=== PATIENT | male | born 1985 | race Caucasian/White ===

== ENCOUNTER 2018-01-25 09:30 | Emergency (ER) | payer BC, OTHER, SELFPAY ==
[2018-01-25 09:36] VITALS: BP 128/82; PULSE 97; RESP 16; TEMP 36.7; O2SAT 98
--- NOTE | 2018-01-25 10:28 | ED.GENADUL ---
Disposition Clinical Impression: Finger laceration Disposition: HOME Condition: Fair Instructions: Finger Laceration (ED) Additional Instructions: Keep current dressing on for the next 48 hours. After that time please keep the wound clean, dry, covered. You may wash with running water but do not soak or submerge this will increase her risk of infection. Monitor for signs of infection including redness, warmth, drainage, increased pain, fever/chills. If these arise please seek care urgently once again. Wear splint for the next week. Please return in 7-9 days for suture removal. Referrals: [facility] Emergency Dept. [Outside] Medical Decision Making - Medical Decision Making Patient presents today with chief complaint of laceration to the right index finger. Patient is left-hand dominant. Patient has an irregularly shaped 5 cm flap laceration over the radial side of the PIP joint. Wound is actively bleeding. Tetanus is up-to-date. No other injury noted. Sensation is intact. He has good range of motion. Ligamentous exam is intact. Patient has discussed closure techniques. Advised him suture closure for flap alignment. We discussed the risk/benefits as well as procedural steps. Patient voiced understanding and wished to proceed. Procedure note: Using standard sterile technique, the patient was anesthetized with 2% lidocaine plain. 8 cc was infiltrated. The sufficiently anesthetized the digit. Attention was then turned to washing the wound. The wound was copiously irrigated forcefully with sterile saline and cleansed with chlorhexidine. Wounds explored to base in a bloodless field, no foreign body or debris was noted. I was able to use a tourniquet to do this with tourniquet needed to be removed prior to suturing the wound as it did cause distortion to the affected tissues. #11 simple interrupted sutures were then placed using 5-0 nylon. Patient tolerated procedure well and a dry, sterile bulky dressing was placed over the wound. Patient I discussed wound care in depth. He will keep current dressing on for the next 48 hours. After that time he will keep wound clean, dry, covered. Advised he may wash with running but should not soak or submerge. Patient I discussed that there is concern for viability of the tissues at the distal aspect of the flap. And concern regarding this area as the tissue so thin. Patient is aware of the possibility that this fall off. Patient will be fitted with a foam metal splint which she will wear after removal of the bulky dressing. He will keep the splint in place for the next week. I advised that he return to the ER in 7-9 days for suture removal. We discussed signs symptoms of infection when to seek care urgently once again. I discussed activities that he should avoid it will place undue pressure on the wound. All his questions and concerns were addressed and he is in agreement with this plan. History of Present Illness - General Chief complaint: Laceration Stated complaint: RT FINGER LACERATION Time Seen by Provider: 01/25/18 10:28 Source: patient, RN notes reviewed Mode of arrival: ambulatory Limitations: no limitations - History of Present Illness Initial comments: Patient is a 32-year-old [id number] male presenting today with chief complaint of laceration to the radial side of the right index finger. 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 Denies other injuries from the incident. Denies any numbness or tingling. Feels that he is good range of motion but when he tries to flex, particularly at the PIP joint, this does increase bleeding. Patient reports that he did wash his hands and immediately applied compressive dressing to the wound to help slow down the bleeding. Last tetanus was 2012. - Related Data Ibuprofen [Advil] 600 mg PO Q6H PRN tab-cap 02/01/15 Aspirin/Caffeine [Toro Back-Body Caplet] 1 each PO PRN 01/10/17 Multivitamin [Daily Multiple Vitamin] 1 each PO DAILY 08/02/17 Allergies Allergy/AdvReac Type Severity Reaction Status Date / Time No Known Allergies Allergy Unverified 01/25/18 09:38 Review of Systems Constitutional: no symptoms reported Respiratory: no symptoms reported Musculoskeletal: as per HPI Skin: as per HPI Neurological: as per HPI Past Medical History - Past Medical History Medical history: no medical history Surgical history: non-contributory General Exam - General Limitations: no limitations General appearance: alert, in no apparent distress - Eye Eye exam: Present: normal apperance - Respiratory Respiratory exam: Absent: respiratory distress - Extremities Exam Extremities exam: Present: full ROM, tenderness, normal capillary refill. Absent: normal inspection (Exam the patient's right upper extremity is significant for a 5 cm irregularly shaped flap laceration over the radial side of the index finger. This does extend onto the PIP joint. Patient is actively bleeding. Flap does appear quite thin particularly at the distal aspect raising the concern for viability. No tendon or muscle involvement is noted. Subcutaneous tissue is visualized. Sensation is intact distal to the wound. Patient does have good range of motion.), joint swelling - Neurological Exam Neurological exam: Present: alert, normal gait. Absent: motor sensory deficit - Psychiatric Psychiatric exam: Present: normal affect, normal mood - Skin Skin exam: Absent: intact (As above) Course Vital Signs - 24 hr 01/25/18 09:36 Temperature 36.7 C Pulse 97 H Respiratory 16 Rate Blood Pressure 128/82 Pulse Oximetry 98
== END 2018-01-25 10:44 | disposition home or self-care (01) ==
PROVIDERS: Emergency Provider Emergency Medicine; PCP Nurse Practitioner Family
DX: S61.210A Laceration without foreign body of right index finger without damage to nail, initial encounter (principal); W26.0XXA Contact with knife, initial encounter
CPT/HCPCS: 12002

== ENCOUNTER 2018-02-04 17:54 | Emergency (ER) | payer BC, OTHER, SELFPAY ==
[2018-02-04 18:07] VITALS: BP 103/65; PULSE 90; RESP 18; TEMP 37.2; O2SAT 98
--- NOTE | 2018-02-04 18:13 | ED.GENADUL ---
Disposition Clinical Impression: Visit for suture removal Disposition: HOME Condition: Good Instructions: Care For Your Stitches (ED) Additional Instructions: Please return in 4 days for reevaluation of your remaining sutures. Please continue to use triple antibiotic, or bacitracin ointment. Please continue to keep the area covered and wash gently daily. If you notice any redness, or signs of infection like warmth, fever, or drainage please return immediately. If you notice any worsening of your symptoms, or any new symptoms such as vomiting, diarrhea, fever, chills, shortness of breath, chest pain, numbness, weakness, or fainting , please return immediately to the emergency department for reevaluation. Please follow up with your primary care provider as soon as possible for reassessment and reevaluation. As always, it was a pleasure participating in your medical care today. Referrals: Coreen Garrett NP [Primary Care Provider] - Medical Decision Making - Medical Decision Making This is a pleasant 32-year-old male who presents for suture removal. Sutures were placed over 10 days ago. Patient demonstrates notable wound healing throughout, however there is a small amount of the laceration that does not appear completely healed to resolve. He has no risk factors of diabetes or steroid use. I feel that the main component of this delay is secondary to the nature of his laceration and the skin flap, however out of precaution we will leave for remaining sutures and make sure good wound healing is noted. We have instructed him to return in the next 3-4 days. There is no evidence of infection on exam, no other significant abnormalities. Patient will return for removal of the 4 remaining sutures in 4 days. History of Present Illness - General Chief complaint: SutureRem Stated complaint: SUTURE REMOVAL Time Seen by Provider: 02/04/18 18:13 - History of Present Illness Initial comments: This is a pleasant 32-year-old male with no significant medical problems who presents today for suture removal. Patient had 11 sutures on his left index finger placed 9-10 days ago secondary to lacerating it while beheading chickens. He has been doing well, with no complications. He presents today for removal of the sutures. He denies any other complaints at this time. He denies any IV or illicit drug use. He denies any pertinent family or surgical history. - Related Data Ibuprofen [Advil] 600 mg PO Q6H PRN tab-cap 02/01/15 Aspirin/Caffeine [Toro Back-Body Caplet] 1 each PO PRN 01/10/17 Multivitamin [Daily Multiple Vitamin] 1 each PO DAILY 08/02/17 Allergies Allergy/AdvReac Type Severity Reaction Status Date / Time No Known Allergies Allergy Unverified 01/25/18 09:38 Review of Systems Other: 10 point review of systems was performed, pertinent positives and negatives are noted in the history of present illness. Past Medical History - Past Medical History Medical history: no medical history Surgical history: non-contributory General Exam - Other Other exam information: 1.Const: Well-nourished, Well-developed, appearing stated age 2.Eyes: PERRL, no conjunctival injection, and symmetrical lids. 3.ENT: Atraumatic external nose and ears. Moist MM. Neck: Symmetric, trachea midline, No thyromegaly. 4.CVS: +S1/S2, No murmurs or gallops. Peripheral pulses 2+ and equal in all extremities. Brisk capillary refill in all extremities. 5.RESP: Unlabored respiratory effort. Clear to auscultation bilaterally. No wheezes rales or rhonchi 6.GI: Soft, Nontender/Nondistended, No hepatosplenomegaly. No guarding or rebound. 7.MSK: Normocephalic/Atraumatic, Extremities w/o deformity or ttp No cyanosis or clubbing, Normal movement of all extremities 8.Skin: Patient demonstrates a well-healing laceration of his left index finger. The shape is U-shaped and nature over the dorsal aspect of the finger. Good wound edge reapproximation is noted. 11 sutures were initially present. 7 were removed. There appears to be some continued need for delayed healing at the crux of the initial laceration. We will leave these remaining sutures in. A small amount of serosanguineous discharge is noted from this area. No severe fluctuance or evidence of abscess. No significant erythema, or signs of infection. 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 Sensation grossly intact, no focal neurologic deficits. 10.Psych: (AAO) x3. Appropriate mood and affect Course Vital Signs - 24 hr 02/04/18 18:07 Temperature 37.2 C Pulse 90 Respiratory 18 Rate Blood Pressure 103/65 Pulse Oximetry 98
[2018-02-04 18:25] VITALS: BP 103/65; PULSE 90; RESP 18; TEMP 37.2; O2SAT 98
== END 2018-02-04 18:35 | disposition home or self-care (01) ==
PROVIDERS: Emergency Provider Student in an Organized Health Care Education/Training Program; PCP Nurse Practitioner Family
DX: S61.210D Laceration without foreign body of right index finger without damage to nail, subsequent encounter (principal); W26.0XXD Contact with knife, subsequent encounter; Z48.02 Encounter for removal of sutures
CPT/HCPCS: 99282; 99281

== ENCOUNTER 2018-11-24 11:56 | Outpatient (REF) | payer BC, SELFPAY | END 2018-11-24 12:16 | LOC: LBN 11:56 | PROVIDERS: PCP Nurse Practitioner Family; Visit Provider Family Medicine | DX: J18.9 Pneumonia, unspecified organism (principal) | CPT/HCPCS: 87449 ==

== ENCOUNTER 2019-12-22 07:56 | Outpatient (CLI) | payer BC, SELFPAY ==
[2019-12-26 01:59] LABS: SARS-CoV-2 RNA Undetected (Undetected); SARS-CoV-2 Specimen Source Nasopharynx
== END 2019-12-22 08:16 ==
PROVIDERS: PCP Nurse Practitioner Family; Visit Provider Nurse Practitioner Family
DX: Z11.59 Encounter for screening for other viral diseases (principal)
CPT/HCPCS: U0003

== ENCOUNTER 2020-05-26 01:23 | Emergency (ER) | payer OTHER, SELFPAY ==
[2020-05-26 01:26] VITALS: BP 142/92; PULSE 73; RESP 14; TEMP 36.5; O2SAT 99
--- NOTE | 2020-05-26 01:29 | ED.GENADUL_ITS ---
Discharge Plan Disposition Patient Disposition: HOME Condition: Stable Discharge Details Clinical Impression: Blunt trauma of face Primary Care Provider: Coreen Garrett ED Provider: Logan Pope Home Meds and New Rx's Prescriptions: New amoxicillin-pot clavulanate [Augmentin] 875-125 mg tablet 1 tab PO BID Qty: 14 RF: 0 Continued multivitamin [Daily Multiple] 1 EACH tablet 1 ea PO DAILY RF: 0 Discharge Instructions Additional Instructions: your cat scan did not show any concerning findings if you have severe pain or decreased vision return to the emergency department use the erythromycin 3 times a day for 3 days Medical Decision Making 34 yo male was putting landing gear in the back of a trailer about 45 minutes prior to arrival when it came back and hit him in the left orbital region. Denies loc or vomit. Has left conjunctival mild erythema, eomi without pain, mild swelling and bruising with 0.5cm abrasion inferior to the left orbit. No neck pain chest pain or abdominal pain. Suspect abrasion and contusion but will obtain ct to evaluate for underlying orbital fracture. No evidence of globe rupture on flourescein staining pt remains stable with no evidence of entrapmenton exam and on ct. CT does show fracture of left orbital floor and medial left orbital wall extending to floor of anterior cranial fossa and recommend head ct. ct head shows no other findings, will have him follow up with ENT within 1-2 weeks and return precautions given. Differential Diagnosis Differential Diagnosis: orbital fracture, corneal abrasion, laceration Imaging Data Radiologic Study: Attestation: I personally reviewed and interpreted this imaging study as follows: Imaging: CT Scan Radiologist's impression: FINDINGS: Left periorbital swelling/laceration noted. No radiopaque foreign body There is a fracture of the left orbital floor. A fracture of the medial left orbital wall extending to the junction of the floor of the anterior cranial fossa coronal image 25 with minimal adjacent air. There are small subperiosteal hematomas. No retrobulbar hematoma, proptosis or CT evidence for muscular entrapment. The right orbit is intact. Fluid level/blood in the left maxillary sinus. Minimal fluid/blood in the left ethmoid air cells Radiologic Study #2: Attestation: I personally reviewed and interpreted this imaging study as follows: Imaging: CT Scan Radiologist's impression: head ct IMPRESSION: No acute intracranial hemorrhage Left orbital fractures as described Mildly low-lying cerebellar tonsils which may be positional. Correlate for occipital headaches HPI General Mode of arrival: ambulatory . Date/Time Provider Initiated Documentation: 05/26/20 01:29 . Limitations to Documentation: no limitations . Information obtained by: patient . History of Present Illness 34 year old M presents to the emergency department with the chief complaint of left eye trauma, described as moderate, and it has been constant. No relieving factors improve symptom(s), No exacerbating factors reported . Patient did receive the following treatments prior to arrival, none Related Data Home Medications Medication Instructions Recorded Confirmed multivitamin [Daily Multiple] 1 ea PO DAILY 08/02/17 05/26/20 amoxicillin-pot clavulanate 1 tab PO BID #14 tab 05/26/20 [Augmentin] Previous Rx's Medication Instructions Recorded amoxicillin-pot clavulanate 1 tab PO BID #14 tab 05/26/20 [Augmentin] Allergies Allergy/AdvReac Type Severity Reaction Status Date / Time No Known Allergies Allergy Verified 05/26/20 01:34 General Stated Complaint: EyeProblem JACINTO: 3 Review of Systems All systems reviewed & are unremarkable except as noted in HPI and below Constitutional Constitutional: Denies chills, Denies fever(s) and Denies weakness Cardiovascular Cardiovascular: Denies chest pain and Denies dyspnea Respiratory Respiratory: Denies cough and Denies dyspnea Gastrointestinal Gastrointestinal: Denies abdominal pain, Denies nausea and Denies vomiting Musculoskeletal Musculoskeletal: Denies joint swelling Integumentary/Breasts Skin/Breast: Denies rash Neurologic Neurologic: Denies weakness [facility] Medical History (Updated 05/26/20 @ 02:01 by Logan Pope MD) Back pain of lumbar region with sciatica (02/01/15) Headache due to low cerebrospinal fluid pressure Headache due to low cerebrospinal fluid pressure S/p 2 blood patches, [place] [facility] [place] History of appendectomy ~1995 Vertigo Surgical History Appendectomy Family History Father Alcohol abuse age 70's Sister Personal history of malignant neoplasm Cervical Cancer Social History Smoking/Tobacco Use Status: Never Smoking risk assessment performed?: Yes Alcohol Intake: former Drug use: Never Substance use type: does not use current occupation: Casino Floor Supervisor, [employer] Pets and animals: Yes Pets and animals: dog(s) Sexually active: Yes Current gender identity: female What is your relationship status?: Panel score (0-1 are the most socially isolated patients): 1 What type of physical activity do you participate in: none Seatbelt use: always Drive intox or ride w/intox line haul driver: No Working smoke detector in home: Yes Carbon monox detector in home: Yes Do you feel safe at home: Yes Do you feel safe in your relationship?: Yes Exam Const General: no acute distress Orientation: alert HENMT Head: normal to inspection Ears: external ears normal General nose exam: external nose normal Mouth: moist mucous membranes Eyes Alignment and Position: alignment normal Neck Neck: normal visual inspection Resp Effort & Inspection: normal respiratory effort and able to speak in complete sentences Cardio Rate: regular rate Skin General skin exam: no rashes or lesions noted Neuro General: patient alert and patient oriented x3 Extrem General: normal to inspection Psych Mental Status: mental status grossly normal Course Vital Signs Vital signs: Vital Signs Temperature 36.5 C 05/26/20 01:26 Pulse 73 05/26/20 01:26 Respiratory Rate 14 05/26/20 01:26 Blood Pressure 142/92 H 05/26/20 01:26 Pulse Oximetry 99 05/26/20 01:26 Temperature 36.5 C 05/26/20 01:26 Temperature Source Skin 05/26/20 01:26 Pulse 73 05/26/20 01:26 Respiratory Rate 14 05/26/20 01:26 Blood Pressure 142/92 H 05/26/20 01:26 Blood Pressure Position Sitting 05/26/20 01:26 Pulse Oximetry 99 05/26/20 01:26 Oxygen Delivery Method Room Air 05/26/20 01:26 Oxygen Flow Rate 0 05/26/20 01:26 Pain Level 4 05/26/20 01:26
[2020-05-26] MEDS: Balanced Salt Solution 15 ML BTL OP (01:38)
[2020-05-26] MEDS: Fluorescein STRIPS 100/BOX 1 MG OP (01:38)
[2020-05-26] MEDS: Tetracaine 0.5% 4 ML BTL OP (01:38)
--- NOTE | 2020-05-26 01:48 | DI.CT_ITS ---
EXAM: CT ORBITS WO CLINICAL HISTORY: trauma left eye. TECHNIQUE: Imaging Protocol: Axial computed tomography images with coronal and sagittal reformatted images were created and reviewed CONTRAST MATERIAL: Intravenous: Omnipaque 350 Contrast volume:structured data in ml Contrast route:I V - Oral: yes / no COMPARISON: No exams were available for comparison FINDINGS: There is periorbital swelling over the left orbit. There is fracture of the floor of the left orbit . There is some fluid in the left maxillary sinus. Inferior herniation of intraorbital fat but no o bvious muscular entrapment. Also fracture of the medial left orbital wall which extends to the junct ion of the floor and anterior cranial fossa with mild adjacent air. No true pneumocephalus. Fractur e extends into outer aspect of the trache that ipsilateral ethmoidal air cells and left frontal sinus . No abnormality seen in the optic nerve and retro conal fat. No dysconjugate gaze. No prominent p roptosis. IMPRESSION: Left orbital fractures as described above. No evidence of pneumocephalus nor intracranial hemorrhage . RADIATION DOSE DELIVERED: 233.29mGy.cm Total DLP DATA REPOSITORY: All CT scans at this facility are submitted to the National Radiology Data Registry (NRDR) Dose Index Registry (DIR) with the [employer] (A[employer]). RADIATION OPTIMIZATION: All CT scans at this facility use at least one of these dose optimization te chniques: automated exposure control; mA and/or kV adjustment per patient size (includes targeted exa ms where dose is matched to clinical indication); or iterative reconstruction.
--- NOTE | 2020-05-26 02:03 | DI.VRAD_ITS ---
PROCEDURE INFORMATION: Exam: CT Orbits Without Contrast Exam date and time: 05/26/2020 1:40 AM Age: 34 years old Clinical indication: Injury or trauma; Other: Blunt trauma; Laceration and swelling; Orbit/periorbital; Not specified; Injury date: 05/26/20; Injury details: Steel handle from tractor trailor crank under too much tension, let loose and struck PT in left eye TECHNIQUE: Imaging protocol: Computed tomography images of the orbits without contrast. Radiation optimization: All CT scans at this facility use at least one of these dose optimization techniques: automated exposure control; mA and/or kV adjustment per patient size (includes targeted exams where dose is matched to clinical indication); or iterative reconstruction. COMPARISON: MRI - BRAIN W/WO CONTRAST 11/25/2014 2:57 PM FINDINGS: Left periorbital swelling/laceration noted. No radiopaque foreign body There is a fracture of the left orbital floor. A fracture of the medial left orbital wall extending to the junction of the floor of the anterior cranial fossa coronal image 25 with minimal adjacent air. There are small subperiosteal hematomas. No retrobulbar hematoma, proptosis or CT evidence for muscular entrapment. The right orbit is intact. Fluid level/blood in the left maxillary sinus. Minimal fluid/blood in the left ethmoid air cells IMPRESSION: Left orbital fractures as described. Fracture line extends to the junction of the floor of the left anterior cranial fossa. No definite pneumocephalus or acute intracranial hemorrhage on the given images. Further evaluation with dedicated head CT may be helpful as clinically indicated Dictated and Authenticated by: Joe Oglesby MD. Ordering:ARTURO Ford MD
--- NOTE | 2020-05-26 02:16 | DI.CT_ITS ---
EXAM: CT HEAD WO CLINICAL HISTORY: trauma, fracture seen on orbital ct. TECHNIQUE: Imaging Protocol: Axial computed tomography images with coronal and sagittal reformatted images were created and reviewed COMPARISON: CT CT ORBITS WO from 05/26/2020 FINDINGS: Left orbital fracture. No other skull fractures identified. There is no evidence of intracranial hemorrhage, mass effect, or shift of midline structures. There are no extra-axial fluid collections. The ventricles are not enlarged or shifted and there is no blo od within the ventricular system nor within the basal cisterns. Mild cerebellar tonsillar ectopia noted. IMPRESSION: No acute intracranial findings. Left orbital fractures. See separate orbital report. RADIATION DOSE DELIVERED: 798.63mGy.cm Total DLP DATA REPOSITORY: All CT scans at this facility are submitted to the National Radiology Data Registry (NRDR) Dose Index Registry (DIR) with the [employer] (ACR). RADIATION OPTIMIZATION: All CT scans at this facility use at least one of these dose optimization te chniques: automated exposure control; mA and/or kV adjustment per patient size (includes targeted exa ms where dose is matched to clinical indication); or iterative reconstruction.
[2020-05-26] MEDS: Amoxicillin 875/Clav. 125 TAB PO (02:23)
[2020-05-26] MEDS: Erythromycin Ophth Oint 3.5 GM TUBE OP (02:24)
--- NOTE | 2020-05-26 02:26 | DI.VRAD_ITS ---
PROCEDURE INFORMATION: Exam: CT Head Without Contrast Exam date and time: 05/26/2020 2:14 AM Age: 34 years old Clinical indication: Injury or trauma; Other: Blunt trauma/fracture; Work related; Blunt trauma (contusions or hematomas) and laceration and swelling (edema); Consciousness not specified; Without residual foreign body; Face; Injury date: 05/26/20; Injury details: Steel handle from tractor trailor crank under too much tension, let loose and struck PT in left eye TECHNIQUE: Imaging protocol: Computed tomography of the head without contrast. Radiation optimization: All CT scans at this facility use at least one of these dose optimization techniques: automated exposure control; mA and/or kV adjustment per patient size (includes targeted exams where dose is matched to clinical indication); or iterative reconstruction. COMPARISON: MRI - BRAIN W/WO CONTRAST 11/25/2014 2:57 PM FINDINGS: Brain: No hemorrhage. Unremarkable white matter. No mass effect. Mildly low-lying cerebellar tonsils Cerebral ventricles: No ventriculomegaly. Bones/joints: Left orbital floor and medial wall fractures. Paranasal sinuses: Blood/fluid level in the left maxillary sinus and minimal fluid/blood in the left ethmoid air cells Mastoid air cells: Visualized mastoid air cells are well aerated. Soft tissues: Unremarkable. IMPRESSION: No acute intracranial hemorrhage Left orbital fractures as described Mildly low-lying cerebellar tonsils which may be positional. Correlate for occipital headaches Dictated and Authenticated by: Joe Oglesby MD. Ordering:ARTURO Ford MD
== END 2020-05-26 02:31 | disposition home or self-care (01) ==
LOC: ER 02:34
PROVIDERS: Emergency Provider Emergency Medicine; PCP Nurse Practitioner Family
DX: S02.32XA Fracture of orbital floor, left side, initial encounter for closed fracture (principal); S02.832A Fracture of medial orbital wall, left side, initial encounter for closed fracture; W20.8XXA Other cause of strike by thrown, projected or falling object, initial encounter
CPT/HCPCS: 99284; 70450; 70480; 99285

== ENCOUNTER → 2023-06-13 00:25 | Outpatient (CLI) | payer BC, SELFPAY ==
--- NOTE | 2023-06-13 08:30 | DI.RAD_ITS ---
Exam(s) XR FOOT LT COMPLETE EXAM: XR FOOT LT COMPLETE CLINICAL HISTORY: Left heel pain,LT FOOT PAIN,M79.672. TECHNIQUE: 2D digital imaging was performed. Three views. COMPARISON: No exams were available for comparison FINDINGS: BONES: No acute fracture is present. No bony destructive lesion is seen. Tiny enthesophyte at Salazar s insertion. JOINTS: No dislocation present. Steep plantar arch. SOFT TISSUE: Normal. IMPRESSION: Steep plantar arch. Tiny calcaneal enthesophyte. DATA REPOSITORY: RADIATION DOSE DELIVERED:
== END ==
PROVIDERS: PCP Nurse Practitioner Family; Visit Provider Podiatrist
DX: M79.672 Pain in left foot (principal)
CPT/HCPCS: 73630

== ENCOUNTER 2023-11-19 15:11 | Outpatient (CLI) | payer BC, SELFPAY ==
--- NOTE | 2023-11-19 15:00 | RT.EKG_ITS ---
APPROVED REPORT Exam: Resting ECG Reason for Exam: chest pain Patient Location: O HR:78 bpm ECG Measurements Heart Rate 78 AXIS MA 203 P 61 QRSd 96 QRS -24 QT 376 T 20 QTc 429 Conclusion Sinus rhythm...normal P axis, V-rate 50- 99 Borderline prolonged MA interval...MA >202, V-rate 50- 90
== END 2023-11-19 15:12 | disposition home or self-care (01) ==
LOC: DI.KIM 15:12
PROVIDERS: PCP Nurse Practitioner Family; Visit Provider Nurse Practitioner
DX: R07.9 Chest pain, unspecified (principal)
CPT/HCPCS: 93010

== ENCOUNTER 2023-11-20 05:35 | Outpatient (CLI) | payer BC, SELFPAY ==
[2023-11-20 14:10] LABS: HCT 41.8 % (40.0-50.0); MCH 31.1 pg (27.0-33.0); MCHC 35.9 % (32.0-36.0); MCV 87 fL (80-95); MPV 8.7 fL (8.0-11.0); Platelet Count 210 10^3/uL (130-400); RBC 4.83 10^6/uL (4.36-5.78); RDW 12.5 % (11.8-14.1); RDW-SD 39.3 fL; WBC 5.51 10^3/uL (4.4-10.8)
[2023-11-20 15:23] LABS: ALT 65 U/L (16-63); AST 57 U/L (15-37); Albumin 4.2 g/dL (3.4-5.0); Alkaline Phosphatase 69 U/L (46-116); Anion Gap 8.9 mmol/L (3-11); BUN 15 mg/dL (7-18); Bilirubin, Total 1.1 mg/dL (0.2-1.0); CO2 28.1 mmol/L (21.0-32.0); CREATININE 0.9 mg/dL (0.70-1.30); Calcium 9.1 mg/dL (8.5-10.1); Calculated LDL 114 mg/dL (<100); Chloride 105 mmol/L (98-107); Cholesterol 166 mg/dL (<200); Estimated GFR 110.73 (mL/min/1.73m2); Glucose 83 mg/dL (74-106); HDL Cholesterol 42 mg/dL (40-60); Potassium 3.7 mmol/L (3.5-5.1); Sodium 142 mmol/L (136-145); TSH (W/Ref FT4) 0.56 uIU/mL (0.36-3.74); Total Protein 7.2 g/dL (6.4-8.2); Triglyceride 51 mg/dL (<150)
== END 2023-11-20 05:36 | disposition home or self-care (01) ==
LOC: LBO 05:35
PROVIDERS: PCP Nurse Practitioner Family; Referring Provider Nurse Practitioner; Visit Provider Nurse Practitioner
DX: R07.9 Chest pain, unspecified (principal); E78.5 Hyperlipidemia, unspecified
CPT/HCPCS: 36415; 80053; 80061; 85027; 84443

== ENCOUNTER → 2023-11-28 00:36 | Outpatient (CLI) | payer BC, SELFPAY ==
--- NOTE | 2023-11-28 08:15 | ETT_ITS ---
APPROVED REPORT Exam: Exercise Treadmill Patient Location: Out-Patient Room/Bed: Stress Nurse: Kim Kyle RN Ordering Provider:MEENA SMALL, Contact Number: [phone] BMI: 27.39 Baseline Rhythm: Sinus Rhythm Indications: Chest pain, Medical History Medical History: Achilles tendonitis, plantar fascitis, back pain, [place] [facility] [place] Cardiac Medications: None Allergies: NKDA Cardiac Risk Factors: None Previous Cardiac Procedures: None Pretest Chest Pain Characteristics: None Exercise History: Physically active Physical Disabilities: None Lung Sounds: Clear to auscultation Heart Sounds: Regular Stress Test Details Test: Exercise stress testing was performed using a Mendel protocol. Rest Stress HR Resting HR Supine: 76 bpm Max Heart Rate (APMHR): 180 bpm Resting HR Standin bpm Target HR (85% APMHR): 153 bpm Max HR Achieved: 169 bpm % of APMHR: 94 Recovery HR: 93 bpm HR response to stress: Normal HR response to stress BP Resting BP Supine: 112/74 mmHg Resting BP Standin/76 mmHg Max BP: 180/72 mmHg Recovery BP: 110/76 mmHg BP response to stress: Normal blood pressure response to stress. ECG Resting ECG: Sinus Rhythm Ectopy: None Stress ECG: Sinus Tachycardia ST Change: No significant ST segment changes noted Arrhythmia: None Recovery ECG: Sinus Rhythm Recovery ST Change: No significant ST segment changes noted Recovery Arrhythmia: None Clinical Reason for Termination: Target HR Achieved, Fatigue Stress Symptoms: General Fatigue Exercise duration: 10 min27 sec Highest Stage Reached: Stage 4: 4.2 mph at 16% grade. Exercise capacity: 12.56 METs Angina Score: None King Treadmill Score: 9.3 Rate Pressure Product: [id number] Stress ECG Conclusion 1. Resting electrocardiogram is normal 2. Patient exercised on the Mendel protocol completed a workload of 12.56 METS 3. Normal heart rate and blood pressure response to exercise. The patient achieved 94% of predicted heart rate for age 4. There was no electrocardiographic evidence of myocardial ischemia 5. There were no significant dysrhythmias King Treadmill Score is 9.3 which is Low risk. Stress Test Summary STAGE Time (mins) Speed (mph) Grade (%) HR BP SpO2 SYMPTOMS METS Supine 76 112/74 96 Standing 84 118/76 1 3 1.7 10 106 142/70 96 4.5 2 6 2.5 12 122 180/72 7 3 9 3.4 14 150 10 4 12 4.2 16 169 13 1 min recovery 140 158/80 97 3 min recovery 95 136/74 96 6 min recovery 93 110/76
== END ==
PROVIDERS: PCP Nurse Practitioner Family; Visit Provider Nurse Practitioner
DX: R07.89 Other chest pain (principal)
CPT/HCPCS: 93017

== ENCOUNTER 2023-12-23 16:55 | Emergency (ER) | payer BC, SELFPAY ==
[2023-12-23 17:06] VITALS: BP 120/83; PULSE 93; RESP 12; TEMP 36.8; O2SAT 96
--- NOTE | 2023-12-23 17:45 | DI.RAD_ITS ---
Exam(s) XR TIB/FIB LT EXAM: XR TIB/FIB LT CLINICAL HISTORY: trauma. TECHNIQUE: 2D digital imaging was performed of the left tibia and fibula. Three images were obtained . AP and lateral views were obtained. COMPARISON: No exams were available for comparison FINDINGS: BONES: No acute fracture is present. The distal fibula is not included on the AP view. No bony dest ructive lesion is seen. Visualized portion of knee and ankle joints are unremarkable. SOFT TISSUE: There is soft tissue swelling anteriorly in the mid leg. No radiopaque foreign body or soft tissue gas is seen. IMPRESSION: 1. Soft tissue swelling anteriorly in the mid lower leg but no foreign body or soft tissue gas is see n. 2. No acute fracture or dislocation. DATA REPOSITORY: RADIATION DOSE DELIVERED:
[2023-12-23 18:49] VITALS: PULSE 72; RESP 16; TEMP 36.9; O2SAT 97
--- NOTE | 2023-12-23 18:54 | ED.GENADUL_ITS ---
Discharge Plan Disposition Patient Disposition: Home Condition: Stable Discharge Details Clinical Impression: Hematoma, Abrasion Primary Care Provider: Coreen Garrett ED Provider: Kristina Zhu Home Meds and New Rx's Prescriptions: Continued multivitamin [Daily Multiple] 1 EACH tablet 1 ea PO DAILY Discharge Instructions Instructions: Taking care of bruises, Taking care of cuts, scrapes, and puncture wounds Additional Instructions: Change dressing daily Wash with soap and water Apply bacitracin topically Elevate and ice Return with spreading redness, fever, worsening pain Referrals: Coreen Garrett, MATT [Primary Care Provider] - HPI General Date/Time Provider Initiated Documentation: 12/23/23 17:49 . HPI Narrative: 38-year-old male presenting with left lower extremity trauma after a board fell out of his truck, landing on his rebollar. Happened prior to arrival. Tetanus is not reportedly up-to-date. Related Data Home Medications Medication Instructions Recorded Confirmed multivitamin (Daily Multiple 1 ea PO DAILY 08/02/17 12/23/23 tablet) Allergies Allergy/AdvReac Type Severity Reaction Status Date / Time No Known Allergies Allergy Verified 12/23/23 17:09 General Stated Complaint: Laceration JACINTO: 4 Exam Narrative Exam Narrative: Alert and oriented 38-year-old gentleman, abrasion and hematoma noted to left mid rebollar, neurovascularly intact, no tenderness to left knee or left ankle Course Vital Signs Vital signs: Vital Signs Temperature 36.8 C 12/23/23 17:06 Pulse 93 H 12/23/23 17:06 Respiratory Rate 12 12/23/23 17:06 Blood Pressure 120/83 12/23/23 17:06 Pulse Oximetry 96 12/23/23 17:06 Temperature 36.9 C 12/23/23 18:49 Temperature Source Tympanic 12/23/23 18:49 Pulse 72 12/23/23 18:49 Pulse Rhythm Regular 12/23/23 18:49 Respiratory Rate 16 12/23/23 18:49 Respiratory Effort Normal, Non-Labored 12/23/23 17:10 Blood Pressure 120/83 12/23/23 17:06 Blood Pressure Position Sitting 12/23/23 17:06 Pulse Oximetry 97 12/23/23 18:49 Oxygen Delivery Method Room Air 12/23/23 18:49 Oxygen Flow Rate 0 12/23/23 18:49 Pain Level 2 12/23/23 18:49 Medical Decision Making Patient with injury to left mid rebollar. Tetanus was updated, x-ray per radiology interpretation my review does not show evidence of acute fracture, pressure dressing was applied to assist with hematoma and bacitracin. Patient will continue to apply bacitracin at home. 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 (Chronic) S/p 2 blood patches, [place] [facility] [place] Back pain of lumbar region with sciatica (Acute 02/01/15) Vertigo (Chronic) Surgical History History of appendectomy (~1995) Family History Father Alcohol abuse age 70's Sister Personal history of malignant neoplasm Cervical Cancer Social History Smoking/Tobacco Use Status: Never Smoking risk assessment performed?: Yes Alcohol Intake: former Drug use: Never Substance use type: does not use 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
[2023-12-23 19:00] VITALS: BP 141/84; PULSE 84; RESP 16; O2SAT 97
[2023-12-23] MEDS: Tetanus & Diphtheria Tox,ADULT 0.5 ML VIAL IM (19:00)
== END 2023-12-23 19:08 | disposition home or self-care (01) ==
PROVIDERS: Emergency Provider Physician Assistant; PCP Nurse Practitioner Family
DX: S80.12XA Contusion of left lower leg, initial encounter (principal); W20.8XXA Other cause of strike by thrown, projected or falling object, initial encounter; Z23 Encounter for immunization; Y93.89 Activity, other specified
CPT/HCPCS: 90471; 90714; 99283; 73590